=== PATIENT | male | born 1980 | race Caucasian/White ===

== ENCOUNTER 2018-09-17 17:29 | Emergency (ER) | payer OTHER ==
[~2018-09-17] VITALS: Ht 170.2 cm; Wt 83.1 kg
[2018-09-17 17:55] VITALS: BP 129/70
[2018-09-17 18:22] VITALS: BP 120/73
--- NOTE | 2018-09-17 18:22 | NUR ---
PATIENT PRESENTS TO ED WITH C/O CHEST DISCOMFORT X3 DAYS, WENT TO [facility] WITH CARDIAC WORKUP ON 07/17/18. PT WANTS TO KNOW THE RESULT. AAOX4 WITH EVEN AND STEADY GAIT; LUNGS CLEAR BL; HR EVEN AND REGULAR; PT DENIES ANY FEVER, SOB, OR COUGH AT THIS TIME; DENIES N/V/D; SKIN IS PINK/WARM/DRY; PATIENT STATES TINGING CHEST PAIN 3/10 AT THIS TIME; VSS; PATIENT POSITIONED FOR COMFORT; HOB ELEVATED; BEDRAILS UP X2; BED DOWN. ER MD MADE AWARE OF PT STATUS.
--- NOTE | 2018-09-17 18:33 | NUR ---
Patient being evaluated by physician at bedside.
[2018-09-17 19:11] LABS: BASOPHILS % (AUTO) 0.4 % (0.0-2.0); EOSINOPHILS # (AUTO) 0.2 K/uL (0-0.4); EOSINOPHILS % (AUTO) 3.6 % (0.0-4.0); HEMATOCRIT 47.2 % (36-52); HEMOGLOBIN 15.4 g/dL (12.0-18.0); LYMPHOCYTES # (AUTO) 1.6 K/uL (2.0-11.5); MEAN CORPUSCULAR HEMOGLOBIN 28 pg (27-31); MEAN CORPUSCULAR HGB CONC 33 g/dL (33-37); MEAN CORPUSCULAR VOLUME 86.8 fL (80-94); MONOCYTES # (AUTO) 0.4 K/uL (0.8-1.0); MONOCYTES % (AUTO) 9.1 % (1.7-9.3); NEUTROPHILS # (AUTO) 2.3 K/uL (1.8-7.7); NEUTROPHILS % (AUTO) 50.9 % (42.2-75.2); PLATELET COUNT (AUTO) 194 K/uL (140-450); RED BLOOD CELL COUNT(AUTO) 5.43 MIL/uL (4.20-6.10); RED CELL DISTRIBUTION WIDTH 13.9 % (11.6-13.7); WHITE BLOOD COUNT (AUTO) 4.5 K/uL (4.8-10.8)
[2018-09-17 19:22] LABS: BARBITURATE, URINE NEG. ng/ml (NEG <=200); BENZODIAZEPINE, URINE NEG. ng/mL (NEG <=200); CANNABINOID, URINE NEG. ng/mL (NEG <=50); COCAINE, URINE NEG. ng/mL (NEG <=300); OPIATE, URINE NEG. ng/mL (NEG <=2000); PHENCYCLIDINE SCREEN,URINE NEG. ng/mL (NEG <=25)
[2018-09-17 19:32] LABS: CARBON DIOXIDE 30.9 mmol/L (21-32); POTASSIUM 3.9 mmol/L (3.5-5.1)
[2018-09-17 19:37] LABS: ALBUMIN 4.2 g/dL (3.4-5.0); TOTAL BILIRUBIN 0.5 mg/dL (0.0-1.0)
[2018-09-17 19:39] LABS: PROTHROMBIN TIME 12.4 secs (10.8-13.4)
[2018-09-17 19:50] LABS: D-DIMER < 100 ng/ml (0-400)
[2018-09-17] MEDS ORDERED: WARFARIN 2.5 MG TAB PO ONE ×2 (20:00)
== END 2018-09-17 20:35 | disposition home or self-care (01) ==
LOC: MED 17:29
DX: T82.847A Pain due to cardiac prosthetic devices, implants and grafts, initial encounter (principal); G89.18 Other acute postprocedural pain; Z79.01 Long term (current) use of anticoagulants
CPT/HCPCS: 36415; 71045; 80053; 80305; 83735; 83880; 84484; 85025; 85379; 85610; 85730; 93005; 99284